=== PATIENT | female | born 1995 | race Caucasian/White ===

== ENCOUNTER 2022-07-06 06:18 | Inpatient (IN) | payer BC, SELFPAY ==
[2022-07-06] MEDS: NS w/ Oxytocin 30 units 1,000 ML ONE ×2 (06:18→06:55)
[2022-07-06] MEDS ORDERED: Lidocaine 1% (PF) 30 ML VIAL ONE (06:27)
[2022-07-06] MEDS ORDERED: hydrALAZINE 20 MG/ML VIAL SLOW IVP PRN ×2 (06:53)
[2022-07-06] MEDS ORDERED: Bisacodyl 10 MG SUPP PR PRN (06:53)
[2022-07-06] MEDS ORDERED: Boostrix 0.5 ML (Tdap) VIAL (>/=7 yrs of age) IM ONE (06:53)
[2022-07-06] MEDS ORDERED: Milk Of Magnesia 30 ML UDCUP PO PRN (06:53)
[2022-07-06] MEDS ORDERED: Promethazine HCl 25 MG/ML VIAL IM PRN (06:53)
[2022-07-06] MEDS ORDERED: Ondansetron PF 4 MG/2 ML Vial IVP PRN (06:53)
[2022-07-06 07:16] VITALS: BMI 25.7
[2022-07-06 08:13] LABS: Hemoglobin 9.9 g/dL (12.0-15.5); Mean Corpuscular HGB CONC 34.5 g/dL (32.0-36.0); Mean Corpuscular Hemoglobin 28.7 pg (27.0-33.0); Mean Corpuscular Volume 83.2 fl (81.6-98.3); Mean Platelet Volume 9.9 fl (7.4-10.4); Platelet Count 287 10x3/uL (150-450); RBC Distribution Width 13.3 % (11.5-14.5); Red Blood Cell (RBC) Count 3.45 10x6/uL (3.90-5.03); White Blood Cell (WBC) Count 20.6 10x3/uL (3.5-10.5)
[2022-07-06 08:37] LABS: Syphilis Antibody Nonreactive (Nonreactive); Syphilis Antibody Index 0.03 S/CO (<1.00 Non-Reactive)
[2022-07-06 09:12] LABS: HBSAg Index 0.22 S/CO (0-0.99); Hep B Surf Ag Non-Reactive S/CO (NonReactive)
[2022-07-06] MEDS: Acetaminophen 500 MG TAB PO PRN ×2 (09:54→16:20)
[2022-07-06] MEDS: Docusate 100 MG CAP PO SCH ×2 (11:16→22:57)
[2022-07-06] MEDS: Lactated Ringer's 1,000 ML IV SCH ×2 (11:17→14:54)
[2022-07-06 12:03] LABS: SARS-CoV-2 NAA Rapid Test Not Detected (NotDetected)
[2022-07-06] MEDS: Ibuprofen 800 MG TAB PO SCH ×2 (14:05→22:53)
[2022-07-07] MEDS: Ibuprofen 800 MG TAB PO SCH ×3 (06:26→21:13)
[2022-07-07] MEDS: Lactated Ringer's 1,000 ML IV SCH ×3 (07:26→14:12)
[2022-07-07] MEDS: Docusate 100 MG CAP PO SCH ×2 (08:30→21:13)
[2022-07-07 20:34] VITALS: TEMP 98.1
[2022-07-08] MEDS: Ibuprofen 800 MG TAB PO SCH (06:02)
[2022-07-08] MEDS: Lactated Ringer's 1,000 ML IV SCH ×2 (06:31→07:48)
[2022-07-08 08:17] VITALS: BP 120/58
[2022-07-08] MEDS: Docusate 100 MG CAP PO SCH (08:23)
== END 2022-07-08 12:30 | disposition home or self-care (01) | DRG 776 ==
LOC: CSHLD 06:18 → CSHPP 09:25
PROVIDERS: ADMIT Obstetrics & Gynecology; ATTEND Obstetrics & Gynecology
PROC: 0UQMXZZ Repair Vulva, External Approach (ICD-10-PCS; principal; 2022-07-06)
DX: O98.33 Other infections with a predominantly sexual mode of transmission complicating the puerperium (principal); O70.0 First degree perineal laceration during delivery; A63.0 Anogenital (venereal) warts; Z20.822 Contact with and (suspected) exposure to COVID-19
CPT/HCPCS: 85027; 86706; 86762; 86780; 86850; 86900; 86901; 87340; 88307; J0595; J2001; J2590; U0002